=== PATIENT | male | born 1990 | race Caucasian/White ===

== ENCOUNTER 2017-07-25 00:47 | Inpatient (IN) | payer OTHER ==
[~2017-07-25] VITALS: Ht 182.9 cm; Wt 77.5 kg
[2017-07-25] MEDS ORDERED: CEPHALEXIN 500 MG CAPSULE ONE (01:52)
[2017-07-25] MEDS ORDERED: SULFAMETH./TRIMETHOPRIM DS 800MG/160MG TABLET ONE (01:53)
[2017-07-25] MEDS ORDERED: OXYcodone/APAP 5/325MG TABLET ONE (01:53)
[2017-07-25] MEDS ORDERED: LIDOCAINE-MPF 1%, 5ML ONE (01:57)
[2017-07-25] MEDS ORDERED: LIDOCAINE 2%, 20ML SQ ONE (02:00)
[2017-07-25] MEDS ORDERED: CEPHALEXIN 500 MG CAPSULE PO ONE (02:00)
[2017-07-25] MEDS ORDERED: OXYcodone/APAP 5/325MG TABLET PO ONE (02:00)
[2017-07-25] MEDS ORDERED: SULFAMETH./TRIMETHOPRIM DS 800MG/160MG TABLET PO ONE (02:00)
[2017-07-25] MEDS ORDERED: SODIUM CHLORIDE FLUSH 10ML SYR IVF ONE (02:30)
[2017-07-25] MEDS ORDERED: MORPHINE SULFATE 4 MG/ML, 1ML IV PRN (02:30)
[2017-07-25] MEDS ORDERED: CLINDAMYCIN PMX 600MG/50ML 50 ML IVPB ONE (02:30)
[2017-07-25] MEDS ORDERED: MORPHINE SULFATE 4 MG/ML, 1ML ONE (02:39)
[2017-07-25] MEDS ORDERED: CLINDAMYCIN PMX 600MG/50ML 50 ML ONE (02:40)
[2017-07-25 03:05] LABS: HCT (SEDRATE) 44.8 % (39.2-51.8); MEAN CORPUSCULAR HEMOGLOBIN 29.9 pg (27.5-34.5); MEAN CORPUSCULAR HGB CONC 33.1 g/dL (33.2-36.2); MEAN CORPUSCULAR VOLUME 90.4 fL (81-97); MEAN PLATELET VOLUME 9.1 fL (7.4-10.4); PLATELET COUNT 302 x10^3/uL (130-400); RED BLOOD COUNT 4.95 x10^6/uL (4.38-5.82); RED CELL DISTRIBUTION WIDTH 12.9 % (9.4-14.8)
[2017-07-25 03:11] LABS: ALBUMIN 3.5 g/dL (3.4-5.0); ANION GAP 10 mmol/L (5-15); CALCIUM 8.9 mg/dL (8.5-10.1); CHLORIDE 106 mmol/L (98-107); CREATININE 0.92 mg/dL (0.7-1.3)
[2017-07-25] MEDS ORDERED: SODIUM CHLORIDE 0.9% 1,000 ML IV SCH (03:19)
[2017-07-25 03:25] LABS: BASOPHILS # (AUTO) 0.02 x10^3/uL (0-0.1); BASOPHILS % (AUTO) 0 % (0-1); EOSINOPHILS # (AUTO) 0.04 x10^3/uL (0-0.4); EOSINOPHILS % (AUTO) 0 % (1-7); LYMPHOCYTES # (AUTO) 1.55 x10^3/uL (1-3.4); LYMPHOCYTES % (AUTO) 9 % (22-44); MD SCAN; MONOCYTES % (AUTO) 11 % (2-9); NEUTROPHILS # (AUTO) 13.62 x10^3/uL (1.8-6.8); NEUTROPHILS % (AUTO) 80 % (42-75)
[2017-07-25] MEDS ORDERED: ACETAMINOPHEN 325 MG TABLET PO PRN ×3 (03:30→17:30)
[2017-07-25] MEDS ORDERED: VANCOMYCIN PMX 1GM/200ML 200 ML IV ONE (03:30)
[2017-07-25] MEDS ORDERED: hydrALAzine 20 MG/ML, 1ML IVPush PRN (03:30)
[2017-07-25] MEDS ORDERED: PROMETHAZINE 25 MG/ML, 1ML IM PRN (03:30)
[2017-07-25] MEDS ORDERED: BISACODYL 10 MG SUPP PR PRN (03:30)
[2017-07-25] MEDS ORDERED: ONDANSETRON ODT 4 MG PO PRN (03:30)
[2017-07-25] MEDS ORDERED: LABETALOL 5MG/ML, 20ML IVPush PRN (03:30)
[2017-07-25] MEDS ORDERED: POLYETHYLENE GLYCOL 17 GM PACKET PO PRN (03:30)
[2017-07-25] MEDS ORDERED: VANCOMYCIN PER PHARMACY MC PRN (03:30)
[2017-07-25] MEDS ORDERED: PIPERACILLIN/TAZO/PMX 3.375GM 50 ML ONE (03:37)
[2017-07-25 03:55] LABS: SEDIMENTATION RATE 20 mm/hr (0-10)
[2017-07-25] MEDS: PIPERACILLIN/TAZO/PMX 3.375GM 50 ML IV SCH ×4 (03:55→21:52)
[2017-07-25 03:57] LABS: FREE T4 (FREE THYROXINE) 1.46 ng/dL (0.76-1.46); THYROID STIMULATING HORMONE 1.14 mIU/L (0.358-3.740)
[2017-07-25] MEDS ORDERED: PHARMACOKINETIC MONITORING MC PRN (04:30)
[2017-07-25] MEDS ORDERED: PHARMACOKINETIC CONSULTATION MC ONE (04:30)
[2017-07-25 04:32] VITALS: BP 133/81
[2017-07-25 04:38] VITALS: BP 133/81
[2017-07-25 04:38] LABS: HEMOGLOBIN A1C 5.2 % (4.2-6.3)
[2017-07-25] MEDS: VANCOMYCIN 1,400 MG in SODIUM CHLORIDE 0.9% 250 ML IV SCH ×2 (05:00→16:31)
[2017-07-25] MEDS: SENNA/DOCUSATE TABLET PO SCH (09:00)
[2017-07-25 09:03] VITALS: BP 108/68
[2017-07-25] MEDS: morphine SULFATE 10 MG/ML, 1ML IVPush PRN ×3 (10:27→22:05)
[2017-07-25] MEDS: D5%-0.9% NACL 1,000 ML IV SCH ×2 (10:28→18:30)
[2017-07-25] MEDS ORDERED: D5%-0.9% NACL 1,000 ML IV SCH (10:30)
[2017-07-25 16:00] VITALS: BP 109/69
[2017-07-25] MEDS ORDERED: FENTANYL PF 250 MCG/5ML ONE (16:39)
[2017-07-25] MEDS ORDERED: MIDAZOLAM 1 MG/ML, 2ML ONE (16:39)
[2017-07-25] MEDS ORDERED: SUCCINYLCHOLINE 20 MG/ML, 10ML ONE (16:42)
[2017-07-25] MEDS ORDERED: LIDOCAINE 2%, 10ML ONE (16:43)
[2017-07-25] MEDS ORDERED: PROPOFOL 10 MG/ML, 20ML ONE (16:43)
[2017-07-25] MEDS ORDERED: BUPIVACAINE/PF 0.5% ONE (16:52)
[2017-07-25] MEDS ORDERED: MEPERIDINE/PF 25MG/0.5ML IVPush PRN (17:00)
[2017-07-25] MEDS ORDERED: ONDANSETRON 2MG/ML, 2ML IVPush PRN (17:00)
[2017-07-25] MEDS ORDERED: morphine SULFATE 10 MG/ML, 1ML IV PRN (17:00)
[2017-07-25] MEDS ORDERED: FENTANYL PF 100 MCG/2ML IV PRN ×2 (17:00→17:30)
[2017-07-25] MEDS ORDERED: OXYcodone 5 MG/5 ML ORAL.SOL UDC PO PRN ×2 (17:00→17:30)
[2017-07-25] MEDS ORDERED: PROMETHAZINE 25 MG/ML, 1ML IV PRN (17:00)
[2017-07-25] MEDS ORDERED: ONDANSETRON 2MG/ML, 2ML ONE (17:14)
[2017-07-25] MEDS ORDERED: DEXAMETHASONE 4 MG/ML, 1ML ONE (17:14)
[2017-07-25] MEDS ORDERED: BUPIVACAINE/PF 0.5% INFIL ONE (17:27)
[2017-07-25] MEDS ORDERED: PROMETHAZINE 12.5 MG SUPP PR PRN (17:30)
[2017-07-25] MEDS ORDERED: OXYcodone 5 MG/5 ML ORAL.SOL UDC ONE (18:22)
[2017-07-25 19:07] VITALS: BP 116/70
[2017-07-25] MEDS: SODIUM CHLORIDE 0.9% 1,000 ML IV SCH (19:48)
[2017-07-26 01:15] VITALS: BP 114/72
[2017-07-26] MEDS: PIPERACILLIN/TAZO/PMX 3.375GM 50 ML IV SCH ×3 (03:51→17:59)
[2017-07-26] MEDS: VANCOMYCIN 1,400 MG in SODIUM CHLORIDE 0.9% 250 ML IV SCH ×2 (04:49→19:43)
[2017-07-26] MEDS: SODIUM CHLORIDE 0.9% 1,000 ML IV SCH ×2 (05:00→19:49)
[2017-07-26] MEDS: morphine SULFATE 10 MG/ML, 1ML IVPush PRN ×4 (05:01→19:55)
[2017-07-26 05:28] LABS: CHLORIDE 107 mmol/L (98-107)
[2017-07-26 05:33] LABS: BASOPHILS # (AUTO) 0.03 x10^3/uL (0-0.1); BASOPHILS % (AUTO) 1 % (0-1); EOSINOPHILS % (AUTO) 0 % (1-7); LYMPHOCYTES # (AUTO) 0.74 x10^3/uL (1-3.4); LYMPHOCYTES % (AUTO) 12 % (22-44); MD NO; MEAN CORPUSCULAR HEMOGLOBIN 30.2 pg (27.5-34.5); MEAN CORPUSCULAR HGB CONC 33.3 g/dL (33.2-36.2); MEAN CORPUSCULAR VOLUME 90.7 fL (81-97); MEAN PLATELET VOLUME 9.3 fL (7.4-10.4); MONOCYTES # (AUTO) 0.63 x10^3/uL (0.2-0.8); MONOCYTES % (AUTO) 10 % (2-9); NEUTROPHILS # (AUTO) 4.85 x10^3/uL (1.8-6.8); NEUTROPHILS % (AUTO) 78 % (42-75); PLATELET COUNT 247 x10^3/uL (130-400); RED CELL DISTRIBUTION WIDTH 13.1 % (9.4-14.8)
[2017-07-26 05:35] LABS: ALANINE AMINOTRANSFERASE 142 U/L (12-78); ALBUMIN 2.6 g/dL (3.4-5.0); ALKALINE PHOSPHATASE 97 U/L (45-117); ANION GAP 8 mmol/L (5-15); BILIRUBIN,TOTAL 0.5 mg/dL (0.2-1.0); CALCIUM 8.2 mg/dL (8.5-10.1); CHOLESTEROL, TOTAL 67 mg/dL (140-239); CREATININE 1.16 mg/dL (0.7-1.3); HDL CHOLESTEROL (DIRECT) 25 mg/dL (40-60); TOTAL PROTEIN 5.9 g/dL (6.4-8.2); TRIGLYCERIDES 61 mg/dL (50-200); VLDL CHOLESTEROL 12 mg/dL (0-25)
[2017-07-26 05:36] LABS: CHOL/HDL RATIO 2.7; HDL CHOL % 37 % (26-37); LDL CHOLESTEROL,CALCULATED 30 mg/dL (54-169); LDL/HDL RATIO 1.2 (0.5-3.0)
[2017-07-26 07:42] VITALS: BP 118/69
[2017-07-26] MEDS: SENNA/DOCUSATE TABLET PO SCH (09:00)
[2017-07-26 14:30] VITALS: BP 116/70
[2017-07-26 20:16] VITALS: BP 125/79
[2017-07-27] MEDS: PIPERACILLIN/TAZO/PMX 3.375GM 50 ML IV SCH ×2 (00:02→05:58)
[2017-07-27] MEDS: morphine SULFATE 10 MG/ML, 1ML IVPush PRN ×7 (00:38→23:35)
[2017-07-27 01:31] VITALS: BP 128/82
[2017-07-27] MEDS: SODIUM CHLORIDE 0.9% 1,000 ML IV SCH ×2 (06:01→17:15)
[2017-07-27 06:29] LABS: BASOPHILS # (AUTO) 0.07 x10^3/uL (0-0.1); BASOPHILS % (AUTO) 1 % (0-1); EOSINOPHILS % (AUTO) 2 % (1-7); LYMPHOCYTES % (AUTO) 29 % (22-44); MD NO; MEAN CORPUSCULAR HEMOGLOBIN 29.5 pg (27.5-34.5); MEAN CORPUSCULAR HGB CONC 32.7 g/dL (33.2-36.2); MEAN CORPUSCULAR VOLUME 90.4 fL (81-97); MEAN PLATELET VOLUME 9.3 fL (7.4-10.4); MONOCYTES # (AUTO) 0.95 x10^3/uL (0.2-0.8); MONOCYTES % (AUTO) 12 % (2-9); NEUTROPHILS % (AUTO) 56 % (42-75); PLATELET COUNT 316 x10^3/uL (130-400); RED BLOOD COUNT 4.34 x10^6/uL (4.38-5.82)
[2017-07-27 06:40] LABS: CHLORIDE 110 mmol/L (98-107)
[2017-07-27] MEDS: AMPICILLIN/SULBACTAM 3 GM in SODIUM CHLORIDE 0.9% 100 ML IV SCH ×3 (06:46→19:38)
[2017-07-27 06:48] LABS: ALANINE AMINOTRANSFERASE 106 U/L (12-78); ALBUMIN 2.5 g/dL (3.4-5.0); ALKALINE PHOSPHATASE 129 U/L (45-117); ANION GAP 8 mmol/L (5-15); BILIRUBIN,TOTAL 0.4 mg/dL (0.2-1.0); CALCIUM 7.7 mg/dL (8.5-10.1); CREATININE 0.96 mg/dL (0.7-1.3); TOTAL PROTEIN 5.8 g/dL (6.4-8.2)
[2017-07-27 08:30] VITALS: BP 135/90
[2017-07-27] MEDS: SENNA/DOCUSATE TABLET PO SCH (09:00)
[2017-07-27] MEDS: VANCOMYCIN 1,400 MG in SODIUM CHLORIDE 0.9% 250 ML IV SCH ×2 (10:06→23:28)
[2017-07-27 14:23] VITALS: BP 141/93
[2017-07-27 21:39] VITALS: BP 120/70
[2017-07-28] MEDS: AMPICILLIN/SULBACTAM 3 GM in SODIUM CHLORIDE 0.9% 100 ML IV SCH ×2 (01:49→08:22)
[2017-07-28 01:53] VITALS: BP 111/67
[2017-07-28] MEDS: morphine SULFATE 10 MG/ML, 1ML IVPush PRN ×4 (04:34→18:48)
[2017-07-28 05:43] LABS: BASOPHILS # (AUTO) 0.05 x10^3/uL (0-0.1); BASOPHILS % (AUTO) 1 % (0-1); EOSINOPHILS # (AUTO) 0.34 x10^3/uL (0-0.4); EOSINOPHILS % (AUTO) 4 % (1-7); LYMPHOCYTES # (AUTO) 2.19 x10^3/uL (1-3.4); LYMPHOCYTES % (AUTO) 28 % (22-44); MD NO; MEAN CORPUSCULAR HEMOGLOBIN 29.6 pg (27.5-34.5); MEAN CORPUSCULAR VOLUME 89.9 fL (81-97); MEAN PLATELET VOLUME 8.8 fL (7.4-10.4); MONOCYTES # (AUTO) 1.19 x10^3/uL (0.2-0.8); MONOCYTES % (AUTO) 15 % (2-9); NEUTROPHILS # (AUTO) 3.97 x10^3/uL (1.8-6.8); NEUTROPHILS % (AUTO) 51 % (42-75); PLATELET COUNT 356 x10^3/uL (130-400); RED BLOOD COUNT 4.72 x10^6/uL (4.38-5.82); RED CELL DISTRIBUTION WIDTH 13.3 % (9.4-14.8)
[2017-07-28] MEDS: SODIUM CHLORIDE 0.9% 1,000 ML IV SCH ×2 (05:51→18:25)
[2017-07-28 05:55] LABS: ALBUMIN 2.5 g/dL (3.4-5.0); ANION GAP 7 mmol/L (5-15); CALCIUM 8.5 mg/dL (8.5-10.1); CHLORIDE 109 mmol/L (98-107)
[2017-07-28 06:01] LABS: ALANINE AMINOTRANSFERASE 86 U/L (12-78); ALKALINE PHOSPHATASE 82 U/L (45-117); BILIRUBIN,TOTAL 0.4 mg/dL (0.2-1.0); CREATININE 0.83 mg/dL (0.7-1.3)
[2017-07-28 08:01] VITALS: BP 132/86
[2017-07-28] MEDS: SENNA/DOCUSATE TABLET PO SCH (08:38)
[2017-07-28 12:09] VITALS: BP 125/88
[2017-07-28 12:48] LABS: HCT (SEDRATE) 45.4 % (39.2-51.8)
[2017-07-28] MEDS: VANCOMYCIN 1,400 MG in SODIUM CHLORIDE 0.9% 250 ML IV SCH (13:02)
[2017-07-28 19:30] VITALS: BP 120/71
[2017-07-28] MEDS ORDERED: VANCOMYCIN 1,600 MG in SODIUM CHLORIDE 0.9% 250 ML IV SCH (20:00)
[2017-07-28] MEDS: VANCOMYCIN 2,000 MG in SODIUM CHLORIDE 0.9% 500 ML IV SCH (20:21)
[2017-07-29 02:37] VITALS: BP 129/79
[2017-07-29] MEDS: SODIUM CHLORIDE 0.9% 1,000 ML IV SCH ×2 (06:50→16:51)
[2017-07-29 07:32] VITALS: BP 119/72
[2017-07-29] MEDS: VANCOMYCIN 2,000 MG in SODIUM CHLORIDE 0.9% 500 ML IV SCH (08:01)
[2017-07-29] MEDS: SENNA/DOCUSATE TABLET PO SCH (09:00)
[2017-07-29 12:51] VITALS: BP 124/74
[2017-07-29 19:26] VITALS: BP 124/63
[2017-07-29] MEDS ORDERED: VANCOMYCIN 1,700 MG in SODIUM CHLORIDE 0.9% 500 ML IV SCH (21:00)
[2017-07-29] MEDS: VANCOMYCIN 1,700 MG in SODIUM CHLORIDE 0.9% 250 ML IV SCH (21:17)
[2017-07-30 02:04] VITALS: BP 113/69
[2017-07-30] MEDS: SODIUM CHLORIDE 0.9% 1,000 ML IV SCH ×2 (03:14→12:21)
[2017-07-30] MEDS: VANCOMYCIN 1,700 MG in SODIUM CHLORIDE 0.9% 250 ML IV SCH ×2 (05:25→13:00)
[2017-07-30 08:13] VITALS: BP 118/67
[2017-07-30] MEDS: SENNA/DOCUSATE TABLET PO SCH (09:00)
[2017-07-30 15:30] VITALS: BP 135/82
[2017-07-30] MEDS: VANCOMYCIN 1,500 MG in SODIUM CHLORIDE 0.9% 250 ML IV SCH (15:57)
[2017-07-30 19:46] VITALS: BP 124/78
[2017-07-30] MEDS ORDERED: VANCOMYCIN 1,500 MG in SODIUM CHLORIDE 0.9% 250 ML IV SCH (21:00)
[2017-07-31] MEDS: VANCOMYCIN 1,500 MG in SODIUM CHLORIDE 0.9% 250 ML IV SCH ×3 (00:09→15:56)
[2017-07-31] MEDS: SODIUM CHLORIDE 0.9% 1,000 ML IV SCH ×2 (00:09→08:46)
[2017-07-31 01:25] VITALS: BP 122/74
[2017-07-31 07:16] VITALS: BP 128/79
[2017-07-31] MEDS: SENNA/DOCUSATE TABLET PO SCH (09:42)
[2017-07-31 12:47] VITALS: BP 125/76
[2017-07-31 19:00] VITALS: BP 123/71
[2017-08-01] MEDS: VANCOMYCIN 1,500 MG in SODIUM CHLORIDE 0.9% 250 ML IV SCH ×4 (00:08→23:59)
[2017-08-01] MEDS: SODIUM CHLORIDE 0.9% 1,000 ML IV SCH ×2 (00:08→10:00)
[2017-08-01 00:25] VITALS: BP 117/68
[2017-08-01] MEDS: SENNA/DOCUSATE TABLET PO SCH (07:49)
[2017-08-01 09:16] VITALS: BP 125/79
[2017-08-01 13:20] VITALS: BP 128/80
[2017-08-01 18:36] VITALS: BP 127/80
[2017-08-02] MEDS: SODIUM CHLORIDE 0.9% 1,000 ML IV SCH ×2 (00:01→10:26)
[2017-08-02 01:48] VITALS: BP 127/76
[2017-08-02] MEDS: SENNA/DOCUSATE TABLET PO SCH (09:00)
[2017-08-02 09:20] VITALS: BP 130/70
[2017-08-02] MEDS: VANCOMYCIN 1,500 MG in SODIUM CHLORIDE 0.9% 250 ML IV SCH (10:26)
[2017-08-02 13:10] VITALS: BP 145/92
== END 2017-08-02 15:00 | disposition left against medical advice (07) | DRG 854 ==
LOC: ED 03:12 → EDIP 03:42 → 3NE 04:17
PROVIDERS: ADMIT Internal Medicine; ATTEND Internal Medicine
PROC: 0J9J0ZZ Drainage of Right Hand Subcutaneous Tissue and Fascia, Open Approach (ICD-10-PCS; principal; 2017-07-25 16:30)
DX: A41.9 Sepsis, unspecified organism (principal); M86.8X4 Other osteomyelitis, hand; L02.511 Cutaneous abscess of right hand; L03.011 Cellulitis of right finger; B95.62 Methicillin resistant Staphylococcus aureus infection as the cause of diseases classified elsewhere; F12.90 Cannabis use, unspecified, uncomplicated; Z72.0 Tobacco use; J45.909 Unspecified asthma, uncomplicated; Z72.89 Other problems related to lifestyle
CPT/HCPCS: 10060; 36415; 76700; 80048; 80053; 80061; 80202; 82040; 83036; 83735; 84100; 84439; 84443; 85025; 85651; 86140; 86141; 86705; 86706; 86709; 86803; 87040; 87070; 87075; 87077; 87186; 87205; 87340; 96365; 96375; J0295; J1100; J2250; J2405; J2543; J2704; J3010; J3370; J3490; J7042; J0330; J2270; J7030; J7040; J7050